=== PATIENT | male | born 1990 | race Caucasian/White ===

== ENCOUNTER 2021-01-24 20:17 | Inpatient (IN) | payer OTHER, MEDICARE, MEDICAID, SELFPAY ==
[2021-01-24] VITALS (7 sets, daily range): BP systolic 107–127; BP diastolic 72–82; PULSE 109–120; RESP 22; TEMP 37.2–37.3; O2SAT 89–94; BMI 4189.9
--- NOTE | 2021-01-24 20:47 | XRR_ITS ---
PROCEDURE INFORMATION: Exam: XR Chest Exam date and time: 01/24/2021 8:47 PM Age: 30 years old Clinical indication: Cough; Prior surgery; Surgery type: Open heart at 6 months old TECHNIQUE: Imaging protocol: XR of the chest. Views: 1 view. COMPARISON: No relevant prior studies available. FINDINGS: Lungs: Right hilar to lower lobe atelectasis versus infiltrate. Pleural spaces: Unremarkable. No pleural effusion. No pneumothorax. Heart/Mediastinum: Unremarkable. No cardiomegaly. Bones/joints: Sternotomy wires. 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 Apparent stomach seen under the left diaphragm. Free air under the diaphragm is felt unlikely given the localized nature of the colon and stomach, a CT could further evaluate for free air if clinical concern exists. XR/XR chest 1V portable 13330 IMPRESSION: 1. 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 2. Apparent stomach seen under the left diaphragm. Free air under the diaphragm is felt unlikely given the localized nature of the colon and stomach, a CT could further evaluate for free air if clinical concern exists. 3. Right hilar to lower lobe atelectasis versus infiltrate.
--- NOTE | 2021-01-24 20:47 | W.ED.GENADLT ---
HPI - General Adult General: Chief complaint: Fever Stated complaint: fever on and off since sunday Time Seen by Provider: 01/24/21 20:18 History of Present Illness: HPI narrative: This patient is a 30-year-old male with a history of Down syndrome presents to the emergency department complaint of cough and congestion. Mom and other family members had similar symptoms. Patient's pulse ox 93% on room air patient is calm at this time. Mom is concerned for possible Covid. Will do medical evaluation treat as needed Onset (ago): day(s) Pain Consistency: intermittent Associated symptoms: Deny chest pain, dyspnea, headache(s), nausea, rash, palpitations or vomiting Review of Systems General: Reports: 10 or more systems reviewed and unremarkable except in HPI and below Const: Denies: fever(s), chills, body aches or fatigue Eyes: Denies: change in vision or blurry vision ENMT: Denies: throat pain, hoarseness or mouth pain Card: Denies: chest pain, palpitations, irregular heart rhythm, edema, swelling of feet/ankles or lightheadedness Resp: Reports: non-productive cough; Denies: dyspnea, productive cough, wheezing or pain on inspiration GI: Denies: abdominal pain, nausea or vomiting : Denies: flank pain, dysuria, urinary frequency, urinary urgency or urinary hesitancy Musc: Denies: neck pain, back pain, extremity pain, extremity swelling, joint pain, joint swelling, joint redness, joint warmth or limited range of motion Skin/Breast: Denies: rash, pruritus, erythema or skin tenderness Neuro: Denies: headache(s), numbness in extremities or weakness in extremities Psych: Denies: anxiety or depression Physical Exam Const: COMMON NORMALS: no acute distress, average body habitus, patient oriented x3, no limitations, healthy appearing, alert and well nourished HENMT: COMMON NORMALS: normocephalic, atraumatic, hearing grossly normal bilaterally, external ears normal, EAC's normal, TM's normal bilaterally, Normal external nose present, Normal nasal mucous membranes and turbinates present, moist oral mucous membranes, oropharynx normal, dentition normal and gingiva normal HEAD & SCALP: normocephalic and atraumatic NOSE: Normal external nose present and Normal nasal mucous membranes and turbinates present EXTERNAL EAR: Yes external ears normal EXTERNAL AUDITORY CANAL: EAC's normal TYMPANIC MEMBRANE: TM's normal bilaterally Neck/C-Spine: COMMON NORMALS: full ROM, no lymphadenopathy, supple, no meningeal signs, no JVD, Thyroid normal and No carotid bruits THYROID: Thyroid normal Chest: COMMONS NORMALS: normal inspection of the chest, normal palpation of entire chest wall, normal inspection of the breasts and normal palpation of the breasts Breast/axilla inspection: Yes normal inspection of the breasts BREAST/AXILLA PALPATION: Yes normal palpation of the breasts Resp: COMMON NORMALS: normal respiratory effort, No retractions, No use of accessory muscles, clear to auscultation bilaterally and percussion normal AUSCULTATION: clear to auscultation bilaterally PERCUSSION: percussion normal Cardio: COMMON NORMALS: no JVD, regular rate, regular rhythm, S1 normal heart sound present, S2 normal heart sound present, No gallops present (Cardio), No clicks present (Cardio), No murmurs present (Cardio), No rub (Cardio) and Peripheral pulses 2+ throughout RATE: regular rate RHYTHM: regular rhythm HEART SOUNDS: S1 normal heart sound present and S2 normal heart sound present PERIPHERAL PULSES: Peripheral pulses 2+ throughout GI: COMMON NORMALS: Normal to inspection, nondistended, normoactive bowel sounds present, Soft to palpation, non-tender, No hepatosplenomegaly present, no masses and no bruits PALPATION: Yes Soft to palpation and Yes No hepatosplenomegaly present : COMMON NORMALS: Yes no CVA tenderness BLADDER/KIDNEY EXAM: Yes no CVA tenderness Back/Pelvis: COMMON NORMALS: no CVA tenderness, thoracic and lumbar spine normal to inspection, no thoracic nor lumbar tenderness, thoraco-lumbar ROM normal and straight leg raise negative bilaterally Extremity: COMMON NORMALS: normal to inspection, full ROM, capillary refill normal, no joint enlargement, no clubbing, cyanosis or edema, no calf tenderness and no pedal edema Neuro: COMMON NORMALS: patient oriented x3 SENSORIUM/ORIENTATION: Yes alert MENINGEAL SIGNS: Yes no meningeal signs Course Reevaluation(s): Reevaluation #1: I did discuss at length with mom at the bedside about patient being positive Covid. She understands that the patient will need to have an IV lab draw and further lab evaluations. Patient is satting 93% on nasal cannula at this time at 3 L. She is agreeable patient be admitted to the hospital for further evaluation and treatment. Time: 22:02 Consultations: Consultation #1: I did discuss at length with Dr. Kin cintron. She is accepted this patient for admission. She is reviewed pending lab order set. And will do side on plan of action at admission. She will see patient write additional orders Time: 22:02 Vital Signs: Vital signs: Vital Signs Temperature 99.1 F 01/24/21 20:39 Pulse Rate 120 H 01/24/21 22:11 Respiratory Rate 22 H 01/24/21 22:11 Blood Pressure 127/82 01/24/21 22:11 Pulse Oximetry 92 01/24/21 22:11 MDM - General Adult MDM Narrative: Medical decision making narrative: This patient is a 30-year-old male with a history of Down syndrome presents to the emergency department complaint of cough and congestion. Mom and other family members had similar symptoms. Patient's pulse ox 93% on room air patient is calm at this time. Mom is concerned for possible Covid. I did discuss at length with mom at the bedside about patient being positive Covid. She understands that the patient will need to have an IV lab draw and further lab evaluations. Patient is satting 93% on nasal cannula at this time at 3 L. She is agreeable patient be admitted to the hospital for further evaluation and treatment. I did discuss at length with Dr. Kin cintron. She is accepted this patient for admission. She is reviewed pending lab order set. And will do side on plan of action at admission. She will see patient write additional orders Medical Records: Attestation: I reviewed the patient's medical records. Lab Data: Attestation: I reviewed the patient's lab results. Labs: Lab Results 01/24/21 Range/Units 21:14 SARS-CoV-2 Ag (Rap id) Positive H (Negative) Imaging Data^: CXR: Attestation: I personally reviewed and interpreted this imaging study as follows: Radiologist's impression: IMPRESSION: 1. 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 2. Apparent stomach seen under the left diaphragm. Free air under the diaphragm is felt unlikely given the localized nature of the colon and stomach, a CT could further evaluate for free air if clinical concern exists. KUB: Attestation: I personally reviewed and interpreted this imaging study as follows: My impression: Normal evaluation for patient patient has a history of Hirschsprung's disease mom describes normal bowel movements and normal passage of gas per the patient. Radiologist's impression: IMPRESSION: Prominent colon and small bowel are seen beneath the diaphragm without gross air-fluid levels or dilation to suggest obstruction. Discharge Plan Discharge Patient Disposition: Admitted As Inpatient Admit Provider: Robyn Sanderson Clinical Impression: Pneumonia due to severe acute respiratory syndrome coronavirus 2 (SARS-CoV-2) Condition: Stable Coding Level of Care Code ED Supervisor Logging for Chg Fwd Exam Comprehensive
--- NOTE | 2021-01-24 21:40 | XRR_ITS ---
PROCEDURE INFORMATION: Exam: XR Abdomen Exam date and time: 01/24/2021 9:40 PM Age: 30 years old Clinical indication: Abdominal pain; Generalized; Additional info: Abd pain. Covid + TECHNIQUE: Imaging protocol: XR of the abdomen. Views: 2 Views. Upright and supine views. COMPARISON: CR (CHEST, ) 01/24/2021 9:24 PM FINDINGS: Gastrointestinal tract: Prominent colon and small bowel are seen beneath the diaphragm without gross air-fluid levels or dilation to suggest obstruction. Intraperitoneal space: Normal. No free air. Bones/joints: Unremarkable for age. XR/XR abdomen min 2V [id number] IMPRESSION: Prominent colon and small bowel are seen beneath the diaphragm without gross air-fluid levels or dilation to suggest obstruction.
[2021-01-24 21:47] LABS: SARS Covid-2 Antigen Positive (Negative)
[2021-01-24] MEDS: albuterol 8 gm MDI 2 PUFF INHALATION (21:55)
--- NOTE | 2021-01-24 22:46 | PC.NURSE ---
Pt resting, coloring into provided coloring book; mother at bedside. Pt calm and cooperative. IV placed with another RN assistance, but pt tolerated well.
[2021-01-24 22:48] LABS: Basophils % 0.2 %; Hematocrit 44.1 % (42.0-52.0); Hemoglobin 15.2 g/dL (11.7-16.6); Lymphocytes # 0.5 10^3/uL (0.8-4.8); Lymphocytes % 10.2 %; Mean Corpuscular HGB Conc 34.5 g/dL (30.0-36.0); Mean Corpuscular Hemoglobin 32.2 pg (28.0-34.0); Mean Corpuscular Volume 93.4 fL (80-94); Mean Platelet Volume 10.2 fL (7.4-10.4); Monocytes # 0.2 10^3/uL (0.2-0.9); Monocytes % 3.9 %; Neutrophils % 85.3 %; Nucleated Red Blood Cells % 0 %; Platelet Count 161 10^3/cmm (130-400); Red Blood Count 4.72 10^6/uL (4.1-5.3); Red Cell Distribution Width 12.2 % (12.1-15.1); White Blood Count 4.9 10^3/uL (4.0-10.0)
[2021-01-24] MEDS: dexamethasone 10 mg/mL INJ IVP (23:15)
[2021-01-24] MEDS: sodium chloride 0.9% 500 ML IV (23:15)
[2021-01-24 23:24] LABS: Lactic Sepsis W/Reflex 1.5 mmol/L (0.5-2.2)
[2021-01-24 23:25] LABS: Troponin T (5th) Once 6 ng/L (0-15)
[2021-01-24 23:28] LABS: INR 1.08 (0.8-1.2)
[2021-01-24 23:29] LABS: Partial Thromboplastin Time 34.5 SECONDS (23.9-36.7)
[2021-01-24 23:35] LABS: NT Pro B Type Natriuretic Pept 69 pg/mL (0-125); Procalcitonin 0.27 ng/mL (0-0.5)
--- NOTE | 2021-01-24 23:43 | P.HP_ITS ---
Providers/Chief Complaint Admitting Physician: Robyn Sanderson MD Primary Care Provider: Brice Nixon DO Chief Complaint: fever on and off since sunday History of Present Illness Dale Sanders is a 30 year old male who presented to the emergency room with chief complaint of fever for a couple of days, nonproductive cough and low oxygen levels that were noted today. Patient has a history of Down syndrome and most of history is obtained from his mother. He can answer a few questions but is anxious and a bit scared about being in the hospital and away from home. His mother had not felt well for a few days herself and then started feeling better. He has had fever off and on since Sunday or Sunday and had a cough. He had been playing and eating okay up until today however so she thought he would get better. He started having increased work of breathing and his mother checked his oxygen levels and noted that they were low in the upper 80s. He has a history of pneumonia several times in his life and has required hospitalization some years ago so when he gets cold-like symptoms she keeps a close eye on him. The low oxygen levels are what prompted the ED visit. On arrival here oxygen levels were in the upper 80s on room air. With 2 to 3 L of oxygen sats were maintaining in the low 90s. Rapid Covid antigen was positive. He had some right-sided infiltrate versus atelectasis noted on chest x-ray. He had some elevation in ferritin, D-dimer and CRP as noted below. He is being admitted for further treatment. He has not had Covid vaccination nor previously had Covid. His mother states that they were planning on getting vaccinated had just not gotten around to it yet. Review of Systems Const: Reports: fever(s) (Couple of days), change in appetite (Today only) and malaise (Started today) Eyes: Reports: other (Eyedrops for chronic tear duct blockage) ENMT: Reports: throat pain ( Almost ); Denies: nasal congestion Card: Denies: chest pain Resp: Reports: dyspnea, non-productive cough and other (Increased work of breathing with low oxygen at home); Denies: productive cough GI: Reports: vomiting (X1 today); Denies: abdominal pain or diarrhea : Denies: difficulty urinating Musc: Denies: back pain or extremity pain Skin/Breast: Denies: rash Neuro: Denies: headache(s) or difficulty walking Psych: Reports: anxiety (About being in the hospital) Adarsh/Lymph: Denies: easy bruising or easy bleeding Medications/Allergies Home Medications Medication Instructions Recorded Confirmed Last Taken Type tobramycin-dexamethasone 1 drp OPHTHALMIC (EYE) BEDTIME 01/25/21 01/25/21 01/23/21 History Allergies Allergy/AdvReac Type Severity Reaction Status Date / Time erythromycin base Allergy ALGY-Rash Verified 01/24/21 21:36 PFSH Acute PFSH: Medical History (Updated 01/25/21 @ 00:36 by Robyn Sanderson MD) 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 Surgical History (Updated 01/25/21 @ 00:36 by Robyn Sanderson MD) History of abdominal surgery multiple due to Hirschsprung's, prior colostomy s/p removal History of appendectomy History of eye surgery multiple History of hernia repair abdominal/incisional History of repair of congenital atrial septal defect (ASD) History of tonsillectomy S/P repair of PDA (patent ductus arteriosus) Family History (Updated 01/25/21 @ 00:37 by Robyn Sanderson MD) Father Cancer stomach cancer, age 51 Social History (Updated 01/25/21 @ 00:38 by Robyn Sanderson MD) Smoking and tobacco status: never smoked Alcohol intake: never Substance/Drug Use: never Household members: family Vitals/I&O/Wt Last Vital Signs Temp 99.0 F 01/24/21 23:20 Pulse 109 H 01/24/21 23:20 Resp 22 H 01/24/21 23:20 BP 108/78 01/24/21 23:20 Pulse Ox 93 01/24/21 23:20 Weight last 48 hrs Weight 67.585 kg Physical Exam Narrative: EXAM NARRATIVE: Constitutional: Awake and alert, pale, mild ill appearance HEENT: Classic Down's facies, some crusting at eyes bilaterally, conjunctive are not injected, nasopharynx with little bit of dried mucus, oropharynx clear with moist mucous membranes Neck: Supple Respiratory: No nasal flaring, no accessory muscle use, oxygen in place, crackles noted bilaterally, rhonchi noted on the right midlung Cardiovascular: Tachycardic, regular rhythm, no murmurs Abdomen: Soft, nondistended, no obvious tenderness though he does not like being touched : Deferred Extremities: No pitting edema, no calf tenderness Skin: Pale, no rashes noted on visible skin surfaces Neuro: Face symmetric, speech clear, moves all extremities though hesitant to follow commands initially Psych: Cooperative though scared/anxious Data : 01/24/21 22:30 01/24/21 22:30 Micro: Microbiology 01/24/21 22:45 Blood Culture - Preliminary Blood SPECIMEN COLLECTED 01/24/21 22:30 Blood Culture - Preliminary Blood SPECIMEN COLLECTED Other data: EKG: Ordered Laboratory Results WBC 4.9 10^3/uL (4.0-10.0) 01/24/21 22: RBC 4.72 10^6/uL (4.1-5.3) 01/24/21 22:30 Hgb 15.2 g/dL (11.7-16.6) 01/24/21 22:30 Hct 44.1 % (42.0-52.0) 01/24/21 22:30 MCV 93.4 fL (80-94) 01/24/21 22:30 MCH 32.2 pg (28.0-34.0) 01/24/21 22:30 MCHC 34.5 g/dL (30.0-36.0) 01/24/21 22:30 RDW 12.2 % (12.1-15.1) 01/24/21 22:30 Plt Count 161 10^3/cmm (130-400) 01/24/21 22:30 MPV 10.2 fL (7.4-10.4) 01/24/21 22:30 Neut % (Auto) 85.3 % 01/24/21 22:30 Lymph % (Auto) 10.2 % 01/24/21 22:30 [place] % (Auto) 3.9 % 01/24/21 22:30 Eos % (Auto) 0.0 % 01/24/21 22:30 Baso % (Auto) 0.2 % 01/24/21 22:30 Neut # (Auto) 4.20 10^3/uL (1.8-7.7) 01/24/21 22:30 Lymph # (Auto) 0.5 10^3/uL (0.8-4.8) L 01/24/21 22:30 [place] # (Auto) 0.2 10^3/uL (0.2-0.9) 01/24/21 22:30 Eos # (Auto) 0.0 10^3/uL (0.0-0.8) 01/24/21 22:30 Baso # (Auto) 0.0 10^3/uL (0.0-0.1) 01/24/21 22:30 Nucleated RBC % (auto) 0 % 01/24/21 22:30 Nucleated RBCs # 0.0 /100WBC 01/24/21 22:30 PT 14.30 SECONDS (12.1-14.9) 01/24/21 22:30 INR 1.08 (0.8-1.2) 01/24/21 22:30 APTT 34.5 SECONDS (23.9-36.7) 01/24/21 22:30 Fibrinogen 327 mg/dL (174-498) 01/24/21 22:30 D-Dimer 0.68 ug/mIFEU (0-0.59) H 01/24/21 22:30 Sodium 139 mmol/L (136-145) 01/24/21 22:30 Potassium 3.1 mmol/L (3.5-5.1) L 01/24/21 22:30 Chloride 103 mmol/L (98-107) 01/24/21 22:30 Carbon Dioxide 22 mmol/L (22-29) 01/24/21 22:30 Anion Gap 17.1 (5-19) 01/24/21 22:30 BUN 5 mg/dL (6-20) L 01/24/21 22:30 Creatinine 0.7 mg/dL (0.7-1.2) 01/24/21 22:30 GFR Calculation 132.4 mL/min (90-130) H 01/24/21 22:30 Glucose 109 mg/dL (65-115) 01/24/21 22:30 Calculated Osmolality 286 mOsm/kg (285-295) 01/24/21 22:30 Lactic Acid 1.5 mmol/L (0.5-2.2) 01/24/21 22:30 Calcium 7.8 mg/dL (8.5-10.5) L 01/24/21 22:30 Magnesium 1.7 mg/dL (1.7-2.3) 01/24/21 22:30 Ferritin 873 ng/mL (30-400) H 01/24/21 22:30 Total Bilirubin 0.3 mg/dL (0.15-1.2) 01/24/21 22:30 AST 20 U/L (0-40) 01/24/21 22:30 ALT 14 U/L (0-41) 01/24/21 22:30 Alkaline Phosphatase 81 IU/L (40-130) 01/24/21 22:30 Lactate Dehydrogenase 173 U/L (135-225) 01/24/21 22:30 Creatine Kinase 81 U/L (39-308) 01/24/21 22:30 Troponin T Gen 5 ng/L 6 ng/L (0-15) 01/24/21 22:30 C-Reactive Protein 30.8 mg/L (0.0-4.9) H 01/24/21 22:30 NT-Pro-B Natriuret Pep 69 pg/mL (0-125) 01/24/21 22:30 Total Protein 6.1 g/dL (6.6-8.7) L 01/24/21 22:30 Albumin 3.8 g/dL (3.5-5.2) 01/24/21 22:30 Globulin 2.3 g/dL (1.3-4.6) 01/24/21 22:30 Procalcitonin 0.27 ng/mL (0-0.5) 01/24/21 22:30 SARS-CoV-2 Ag (Rapid) Positive (Negative) H 01/24/21 21:14 Impressions Chest X-Ray 01/24/21 20:47 IMPRESSION: 1. 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 2. Apparent stomach seen under the left diaphragm. Free air under the diaphragm is felt unlikely given the localized nature of the colon and stomach, a CT could further evaluate for free air if clinical concern exists. 3. Right hilar to lower lobe atelectasis versus infiltrate. Abdomen X-Ray 01/24/21 21:40 IMPRESSION: Prominent colon and small bowel are seen beneath the diaphragm without gross air-fluid levels or dilation to suggest obstruction. A&P Assessment and plan (1) Infection due to severe acute respiratory syndrome coronavirus 2 (SARS-CoV-2): Currently with mildly elevated D-dimer and elevation in CRP, requiring oxygen 2 to 3 L to maintain saturations Status: Acute (2) Down syndrome: Status: Chronic Additional A&P Information Right diaphragm elevation in a patient with a history of Hirschsprung's and multiple abdominal surgeries Inpatient admission Covid isolation Will allow mother to stay in the room with Dale given his dependence on her for reassurance and safety, reviewed with her and she has not felt well prior to the onset of Dale symptoms but has been feeling better lately. Explained that she likely has had Covid but if she had not she was certainly at risk of jomar both at home and here in the hospital. She will wear a mask at all times and was given an opportunity to ask questions. We will provide albuterol and Advair, dexamethasone and initiate remdesivir Oxygen therapy, weaning as able Lovenox and SCDs Repeat d-dimer, ferritin and crp in am Blood cultures were collected Discussed with patient and his mother that we will have to do some serial labs to monitor his response to treatment and to see if he has any worsening laboratory values over time Vitamin supplementation Continue home eye drops Supportive care otherwise Discussed with Dale as well as his mother getting vaccinated after approximately 3 months. Mother indicated that they had talked about getting vaccinated last week but had just not gotten around to it yet aDle's mother has a pulse oximeter at home and would not be averse to consideration for oxygen at home where it to be needed at the time of discharge. Dale is quite anxious about being in the hospital and away from his usual routine but understands current need to continue care in the hospital setting since he is requiring oxygen and needs some additional treatment. Lines/tubes: Peripheral IV in right upper extremity, of note patient does not like to be stuck or have lab drawn and can get emotional DVT prophylaxis: SCDs and Lovenox Plans, findings and concerns discussed with Dale as well as his mother and both were given an opportunity to ask questions. Anticipated Disposition: Home Code Status: Full code Attestations Medical Necessity Statement*: Anticipated stay greater than two midnights in this patient presenting with Covid symptoms, positive rapid Covid antigen and hypoxemia as well as some initial laboratory markers suggestive of potential progressive disease including elevated ferritin, CRP and slight elevation in D-dimer. Plans are as indicated. Coding Level of Care Code Acute Tank Maker Wood for Chg Fwd Diagnoses Infection due to severe acute respiratory syndrome coronavirus 2 (SARS-CoV-2) U07.1 Down syndrome Q90.9
[2021-01-24 23:44] LABS: D Dimer 0.68 ug/mIFEU (0-0.59)
[2021-01-24 23:46] LABS: Alanine Aminotransferase 14 U/L (0-41); Albumin Level 3.8 g/dL (3.5-5.2); Alkaline Phosphatase 81 IU/L (40-130); Anion Gap 17.1 (5-19); Aspartate Amino Transferase 20 U/L (0-40); Blood Urea Nitrogen 5 mg/dL (6-20); C Reactive Protein 30.8 mg/L (0.0-4.9); Calcium 7.8 mg/dL (8.5-10.5); Carbon Dioxide 22 mmol/L (22-29); Chloride 103 mmol/L (98-107); Creatine Phosphokinase 81 U/L (39-308); Fibrinogen 327 mg/dL (174-498); Globulin 2.3 g/dL (1.3-4.6); Glomerular Filtration Rate 132.4 mL/min (90-130); Glucose 109 mg/dL (65-115); Lactate Dehydrogenase 173 U/L (135-225); Magnesium 1.7 mg/dL (1.7-2.3); Osmolality Calculated 286 mOsm/kg (285-295); Potassium 3.1 mmol/L (3.5-5.1); Sodium 139 mmol/L (136-145); Total Bilirubin 0.3 mg/dL (0.15-1.2); Total Protein 6.1 g/dL (6.6-8.7)
[2021-01-25] VITALS (23 sets, daily range): BP systolic 96–125; BP diastolic 71–87; PULSE 83–107; RESP 16–22; TEMP 36.4–37.9; O2SAT 91–95; BMI 29.7
[2021-01-25 00:39] LABS: Ferritin 873 ng/mL (30-400)
--- NOTE | 2021-01-25 01:18 | ECG_ITS ---
[facility] Test Date: 2021-01-25 Pat Name: Dale Sanders Department: Room: 101 Gender: Male Senior Computer Specialist: : 1990 Requested By: Robyn Sanderson Order Number: [id number] Reading MD: ALLISON GUAMAN Measurements Intervals Christine Rate: 95 P: 26 WA: 124 QRS: 10 QRSD: 90 T: -7 QT: 340 QTc: 428 Interpretive Statements SINUS RHYTHM POSSIBLE RIGHT VENTRICULAR CONDUCTION DELAY [RSR (QR) IN V1/V2] NONSPECIFIC T-WAVE ABNORMALITY No previous ECG available for comparison Electronically Signed On 01-25-2021 20:13:57 CDT by ALLISON GUAMAN [id number]
[2021-01-25] MEDS: remdesivir 200 MG in sodium chloride 0.9% (100 ml) 100 ML 100 MG IV (02:01)
[2021-01-25 03:53] LABS: Basophils % 0.3 %; Hematocrit 41.8 % (42.0-52.0); Hemoglobin 14.2 g/dL (11.7-16.6); Lymphocytes # 0.4 10^3/uL (0.8-4.8); Lymphocytes % 5.4 %; Mean Corpuscular Volume 94.1 fL (80-94); Mean Platelet Volume 10.7 fL (7.4-10.4); Monocytes # 0.2 10^3/uL (0.2-0.9); Monocytes % 2.6 %; Neutrophils # 6.27 10^3/uL (1.8-7.7); Neutrophils % 90.7 %; Nucleated Red Blood Cells % 0 %; Platelet Count 156 10^3/cmm (130-400); Red Blood Count 4.44 10^6/uL (4.1-5.3); Red Cell Distribution Width 12.3 % (12.1-15.1); White Blood Count 6.9 10^3/uL (4.0-10.0)
[2021-01-25 04:16] LABS: Blood Urea Nitrogen 6 mg/dL (6-20); Calcium 8.2 mg/dL (8.5-10.5); Carbon Dioxide 24 mmol/L (22-29); Chloride 104 mmol/L (98-107); Glomerular Filtration Rate 113.5 mL/min (90-130); Glucose 150 mg/dL (65-115); Osmolality Calculated 286 mOsm/kg (285-295); Sodium 138 mmol/L (136-145)
[2021-01-25 04:19] LABS: C Reactive Protein 55.9 mg/L (0.0-4.9); Ferritin 798 ng/mL (30-400)
[2021-01-25 04:22] LABS: Anion Gap 13.8 (5-19); Potassium 3.8 mmol/L (3.5-5.1)
[2021-01-25] MEDS: dexamethasone 4 mg/mL INJ 6 MG IVP (08:19)
[2021-01-25] MEDS: ascorbic acid 500 mg Tablet PO (08:20)
[2021-01-25] MEDS: pantoprazole DR 40 mg Tablet PO (08:20)
[2021-01-25] MEDS: cholecalciferol (vitamin D3) 1,000 unit Tablet 2000 UNIT PO (08:20)
[2021-01-25] MEDS: zinc gluconate 50 mg Tablet PO (08:20)
--- NOTE | 2021-01-25 09:34 | PC.CHAP ---
Pastoral Care Encounter/Spiritual Assessment Type of Contact [] Declined agricultural consultant visit [] Patient/Family/Request visit [] Outpatient visit [] Follow-up visit [] Physician referral [] Code/Alert [x] Routine visit [] Staff referral [] Actively dying [] Patient sleeping [] Family support [] [] Out of room [] Palliative care [] [x] Receiving care in room [] Pre-surgical visit [] Trauma [] Long length of stay [] ICU visit [x] Other: isolation Relational/Emotional Strength [] Patient feels connected with others/family/visitors/staff [] Distress [] Loneliness/isolation [] Abandonment Spirituality of Patient [] Person of [place] [] Attends Druze of their [place] [] Believes in Prayer [] Reads Bible or Congregation materials [] There are Spiritual issues to be addressed Furnace Keeper Interventions [x] Prayer [] Active listening [] Non-anxious presence [] Spiritual/emotional support [] Crisis/trauma care [] Spiritual counseling [] Bereavement support [] Provided bereavement packet [] Provided Bible/devotional materials [] Provided toy/stuffed animal, coloring book to patient or family member [] Provided Communion [] Anointing/[place] [] Salvation [x] Completed spiritual assessment [] Other: Impact on Illness or Injury [] Angry [] Fearful [] Anxious [] Often cries [] Exhaustion [] Unable to work [] Unable to attend scientology [] Unable to walk/stand [] Unable to read [] Unable to drive [] Unable to eat/drink [] Unable to sleep [] Unable to be with family [] Patient intubated [] Other: Summary Time spent with patient
--- NOTE | 2021-01-25 13:23 | P.PN_ITS ---
Subjective Subjective: Interval history: Patient was seen this morning, his mother is at bedside, he is a bit reluctant to answer questions, is withdrawn, he does tell me he is doing okay, does follow commands, does not look short of breath, afebrile overnight, currently on 2 L nasal cannula, Vitals/I&O/Wt Last Vital Signs Temp 97.6 F 01/25/21 11:01 Pulse 88 01/25/21 11:01 Resp 18 01/25/21 11:01 BP 96/79 01/25/21 11:01 Pulse Ox 92 01/25/21 11:01 01/24/21 01/25/21 01/25/21 22:59 06:59 14:59 Intake Total 1600 / 1600 480 / 480 Balance 1600 / 1600 480 / 480 Weight last 48 hrs Weight 69.037 kg Weight 67.585 kg Physical Exam Const: COMMON NORMALS: no acute distress ORIENTATION/CONSCIOUSNESS: Yes awake and Yes oriented to person Resp: COMMON NORMALS: normal respiratory effort, No retractions, No use of accessory muscles and clear to auscultation bilaterally AUSCULTATION: clear to auscultation bilaterally Cardio: COMMON NORMALS: regular rate, regular rhythm, S1 normal heart sound present and S2 normal heart sound present RATE: regular rate RHYTHM: regular rhythm HEART SOUNDS: S1 normal heart sound present and S2 normal heart sound present GI: COMMON NORMALS: Normal to inspection, nondistended, normoactive bowel sounds present, Soft to palpation and non-tender PALPATION: Yes Soft to palpation Extremity: COMMON NORMALS: no pedal edema Neuro: SENSORIUM/ORIENTATION: Yes oriented to person Data : 01/25/21 03:40 01/25/21 03:40 Micro: Microbiology 01/24/21 22:45 Blood Culture - Preliminary Blood SPECIMEN COLLECTED 01/24/21 22:30 Blood Culture - Preliminary Blood SPECIMEN COLLECTED A&P Assessment and plan (1) Infection due to severe acute respiratory syndrome coronavirus 2 (SARS-CoV-2): Currently with mildly elevated D-dimer and elevation in CRP, requiring oxygen 2 to 3 L to maintain saturations Status: Acute (2) Down syndrome: Status: Chronic (3) Acute respiratory failure with hypoxia: Status: Acute Additional A&P Information Right diaphragm elevation in a patient with a history of Hirschsprung's and multiple abdominal surgeries Inpatient admission Covid isolation Will allow mother to stay in the room with Dale given his dependence on her for reassurance and safety, reviewed with her and she has not felt well prior to the onset of Dale symptoms but has been feeling better lately. Explained that she likely has had Covid but if she had not she was certainly at risk of jomar both at home and here in the hospital. She will wear a mask at all times and was given an opportunity to ask questions. We will provide albuterol and Advair, dexamethasone and initiate remdesivir Chest x-ray does show pulmonary infiltrates, there is a risk for secondary bacterial infections, will start him on Rocephin and azithromycin Oxygen therapy, weaning as able Lovenox, patient does not tolerate injections, has refused Lovenox, mother alexis ised of the risks of hypercoagulability and DVTs and PEs associate with COVID- 19, she voiced understanding, all questions answered, declined Lovenox. I think trying Eliquis or a newer oral anticoagulant will carry too many risks of bleeding, and mother agrees. I have discussed aspirin 81 mg, he can chew the tablet, because he does not swallow tablets, I advised mom that there is no good studies showing the benefit of aspirin for hypercoagulability prophylaxis in COVID-19 patients, but it can provide some benefit, his benefits unfortunately unknown at this point. After discussion the risks and benefits of aspirin 81 mg to prevent hypercoagulability prophylaxis to COVID-19 patients, she voiced understanding, all questions answered, agreed to proceed Can try SCDs Unfortunately he cannot perform a CT angiogram, due to the whole process of going through the CT scanner, but if is urgently required can try, will hold off for now, or if there is high suspicion for DVT or PE we can always place him on anticoagulation in the meantime Repeat d-dimer, ferritin and crp in am Blood cultures were collected Discussed with patient and his mother that we will have to do some serial labs to monitor his response to treatment and to see if he has any worsening laboratory values over time Vitamin supplementation Continue home eye drops Supportive care otherwise Discussed with Dale as well as his mother getting vaccinated after approximately 3 months. Mother indicated that they had talked about getting vaccinated last week but had just not gotten around to it yet Dale's mother has a pulse oximeter at home and would not be averse to consideration for oxygen at home where it to be needed at the time of discharge. Dale is quite anxious about being in the hospital and away from his usual routine but understands current need to continue care in the hospital setting since he is requiring oxygen and needs some additional treatment. Lines/tubes: Peripheral IV in right upper extremity, of note patient does not like to be stuck or have lab drawn and can get emotional DVT prophylaxis: SCDs and aspirin Anticipated Disposition: Home Code Status: Full code Plan for today, discontinue Lovenox, start aspirin 81 mg, SCDs, continue remdesivir, continue Advair Attestations Medical Necessity Statement*: Patient requires hospitalization, inpatient, greater than 2 midnights, for acute respiratory failure with proximal ascending to COVID-19 Coding Level of Care Code Acute Health Care Consultant for Renetta Cruz Diagnoses Infection due to severe acute respiratory syndrome coronavirus 2 (SARS-CoV-2) U07.1 Down syndrome Q90.9 Acute respiratory failure with hypoxia J96.01
[2021-01-25] MEDS: azithromycin 500 MG in sodium chloride 0.9% 250 ML 250 MG IV (13:36)
[2021-01-25] MEDS: cefTRIAXone 1,000 MG in sodium chloride 0.9% (plus) 50 ML 100 MG IV (16:48)
[2021-01-25] MEDS: albuterol 8 gm MDI 2 PUFF INHALATION (20:19)
[2021-01-25] MEDS: tobramycin-dexametha Op Susp 5 mL Btl 1 DROP EYE-BOTH (22:20)
[2021-01-25] MEDS: acetaminophen 650 mg/20.3 mL UDC PO (23:22)
[2021-01-26] VITALS (20 sets, daily range): BP systolic 91–115; BP diastolic 61–75; PULSE 65–97; RESP 17–24; TEMP 36.3–37.1; O2SAT 89–95
[2021-01-26] MEDS: remdesivir 100 MG in sodium chloride 0.9% (100 ml) 100 ML IV (06:07)
[2021-01-26] MEDS: albuterol 8 gm MDI 2 PUFF INHALATION ×2 (08:38→21:09)
[2021-01-26] MEDS: aspirin 81 mg Chew Tablet PO (08:44)
[2021-01-26] MEDS: dexamethasone 4 mg/mL INJ 6 MG IVP (08:44)
--- NOTE | 2021-01-26 10:10 | PC.CHAP ---
Pastoral Care Encounter/Spiritual Assessment Type of Contact [] Declined veterans rehabilitation counselor visit [] Patient/Family/Request visit [] Outpatient visit [] Follow-up visit [] Physician referral [] Code/Alert [x] Routine visit [] Staff referral [] Actively dying [] Patient sleeping [] Family support [] [] Out of room [] Palliative care [] [] Receiving care in room [] Pre-surgical visit [] Trauma [] Long length of stay [] ICU visit [x] Other: isolated Relational/Emotional Strength [] Patient feels connected with others/family/visitors/staff [] Distress [] Loneliness/isolation [] Abandonment Spirituality of Patient [] Person of [place] [] Attends Spiritism of their [place] [] Believes in Prayer [] Reads Bible or Druze materials [] There are Spiritual issues to be addressed Shallot Cleaner Interventions [x] Prayer [] Active listening [] Non-anxious presence [] Spiritual/emotional support [] Crisis/trauma care [] Spiritual counseling [] Bereavement support [] Provided bereavement packet [] Provided Bible/devotional materials [] Provided toy/stuffed animal, coloring book to patient or family member [] Provided Communion [] Anointing/[place] [] Salvation [x] Completed spiritual assessment [] Other: Impact on Illness or Injury [] Angry [] Fearful [] Anxious [] Often cries [] Exhaustion [] Unable to work [] Unable to attend taoist [] Unable to walk/stand [] Unable to read [] Unable to drive [] Unable to eat/drink [] Unable to sleep [] Unable to be with family [] Patient intubated [] Other: Summary Time spent with patient
[2021-01-26 10:54] LABS: Basophils % 0.2 %; Hematocrit 44.7 % (42.0-52.0); Hemoglobin 15.3 g/dL (11.7-16.6); Lymphocytes # 0.6 10^3/uL (0.8-4.8); Lymphocytes % 5.1 %; Mean Corpuscular HGB Conc 34.2 g/dL (30.0-36.0); Mean Corpuscular Hemoglobin 32.2 pg (28.0-34.0); Mean Corpuscular Volume 94.1 fL (80-94); Mean Platelet Volume 10.9 fL (7.4-10.4); Monocytes # 0.2 10^3/uL (0.2-0.9); Monocytes % 1.9 %; Neutrophils # 11.39 10^3/uL (1.8-7.7); Neutrophils % 92.1 %; Nucleated Red Blood Cells % 0 %; Platelet Count 163 10^3/cmm (130-400); Red Blood Count 4.75 10^6/uL (4.1-5.3); Red Cell Distribution Width 12.6 % (12.1-15.1); White Blood Count 12.4 10^3/uL (4.0-10.0)
[2021-01-26 11:11] LABS: Alanine Aminotransferase 17 U/L (0-41); Albumin Level 3.6 g/dL (3.5-5.2); Alkaline Phosphatase 78 IU/L (40-130); Blood Urea Nitrogen 13 mg/dL (6-20); Calcium 8.6 mg/dL (8.5-10.5); Carbon Dioxide 24 mmol/L (22-29); Chloride 105 mmol/L (98-107); Globulin 2.6 g/dL (1.3-4.6); Glomerular Filtration Rate 132.4 mL/min (90-130); Glucose 129 mg/dL (65-115); Osmolality Calculated 296 mOsm/kg (285-295); Phosphorus 1.7 mg/dL (2.5-4.5); Sodium 142 mmol/L (136-145); Total Bilirubin 0.3 mg/dL (0.15-1.2); Total Protein 6.2 g/dL (6.6-8.7)
[2021-01-26 11:15] LABS: Anion Gap 17.4 (5-19); Potassium 4.4 mmol/L (3.5-5.1)
[2021-01-26 11:16] LABS: Aspartate Amino Transferase 28 U/L (0-40)
[2021-01-26 11:31] LABS: Slide Review Slide Review Perform
[2021-01-26] MEDS: azithromycin 500 MG in sodium chloride 0.9% 250 ML 250 MG IV (13:31)
[2021-01-26] MEDS: cefTRIAXone 1,000 MG in sodium chloride 0.9% (plus) 50 ML 100 MG IV (16:42)
--- NOTE | 2021-01-26 17:04 | P.PN_ITS ---
Subjective Subjective: Interval history: 30 year old male with a past medical history of hirschprung disease and downs syndrome who presented to the emergency room with chief complaint of fever for a couple of days, nonproductive cough and low oxygen levels that were noted today. Laboratory work up on arrival showed a WBC of 4.9, hgb of 15.2, hct of 44.1, and a plt count of 161. INR of 1.08, d-dimer of 0.68. NA of 129, potassium of 3.1, chloride of 103, bicarb of 22, Bun of 5 and a creatinine of 0.7. LA of 1.5. Ferritin of 873, CRP of 30.8, procalcitonin of 0.27. COVID -19 ag was positive. Patient was started on rocephin 1g IV q24hr, azithromycin 500mg IV x q24hr, and decadron 6mg IV q24hr. Patients respiratory status remained stable. On 01/25 patient was started on Remdesivir 100mg IV daily x 4 days. Respiratory status remained stable on 2L of o2 via NC. Medications: Reviewed: Yes Vitals/I&O/Wt Last Vital Signs Temp 97.4 F L 01/26/21 12:00 Pulse 84 01/26/21 15:55 Resp 17 01/26/21 15:55 BP 108/73 01/26/21 12:00 Pulse Ox 92 01/26/21 15:55 01/26/21 01/26/21 01/26/21 06:59 14:59 22:59 Intake Total 1966 590 / 590 Output Total 2 / 3 Balance 225 / 1963 590 / 590 Weight last 48 hrs Weight 69.099 kg Weight 69.037 kg Weight 67.585 kg Physical Exam Const: COMMON NORMALS: no acute distress ORIENTATION/CONSCIOUSNESS: Yes awake and Yes oriented to person Resp: COMMON NORMALS: normal respiratory effort, No retractions, No use of accessory muscles and clear to auscultation bilaterally AUSCULTATION: clear to auscultation bilaterally Cardio: COMMON NORMALS: regular rate, regular rhythm, S1 normal heart sound present and S2 normal heart sound present RATE: regular rate RHYTHM: regular rhythm HEART SOUNDS: S1 normal heart sound present and S2 normal heart sound present GI: COMMON NORMALS: Normal to inspection, nondistended, normoactive bowel sounds present, Soft to palpation and non-tender PALPATION: Yes Soft to palpation Extremity: COMMON NORMALS: no pedal edema Neuro: SENSORIUM/ORIENTATION: Yes oriented to person Data : 01/26/21 10:41 01/26/21 10:41 Micro: Microbiology 01/24/21 22:45 Blood Culture - Preliminary Blood NEGATIVE TO DATE 01/24/21 22:30 Blood Culture - Preliminary Blood NEGATIVE TO DATE A&P Assessment and plan (1) Infection due to severe acute respiratory syndrome coronavirus 2 (SARS-CoV-2): Improving On remdesivir Decadron [place] abx Status: Acute (2) Down syndrome: Status: Chronic (3) Acute respiratory failure with hypoxia: Status: Acute Additional A&P Information Plan to d.c once completed remdesivir Attestations Medical Necessity Statement*: Will continue hospitalization for management of covid19 pneuonia Time Spent in Patient Care: Greater than 35 minutes Coding Level of Care Code Acute Rn Case Management for [facility] Diagnoses Infection due to severe acute respiratory syndrome coronavirus 2 (SARS-CoV-2) U07.1 Down syndrome Q90.9 Acute respiratory failure with hypoxia J96.01
[2021-01-26] MEDS: tobramycin-dexametha Op Susp 5 mL Btl 1 DROP EYE-BOTH (22:48)
[2021-01-27] VITALS (10 sets, daily range): BP systolic 98–128; BP diastolic 54–77; PULSE 73–87; RESP 16–22; TEMP 36.4–36.8; O2SAT 92–95
[2021-01-27] MEDS: remdesivir 100 MG in sodium chloride 0.9% (100 ml) 100 ML IV (06:55)
[2021-01-27] MEDS: dexamethasone 4 mg/mL INJ 6 MG IVP (10:08)
--- NOTE | 2021-01-27 14:10 | P.PN_ITS ---
Subjective Subjective: Interval history: 30 year old male with a past medical history of hirschprung disease and downs syndrome who presented to the emergency room with chief complaint of fever for a couple of days, nonproductive cough and low oxygen levels that were noted today. Laboratory work up on arrival showed a WBC of 4.9, hgb of 15.2, hct of 44.1, and a plt count of 161. INR of 1.08, d-dimer of 0.68. NA of 129, potassium of 3.1, chloride of 103, bicarb of 22, Bun of 5 and a creatinine of 0.7. LA of 1.5. Ferritin of 873, CRP of 30.8, procalcitonin of 0.27. COVID -19 ag was positive. Patient was started on rocephin 1g IV q24hr, azithromycin 500mg IV x q24hr, and decadron 6mg IV q24hr. Patients respiratory status remained stable. On 01/25 patient was started on Remdesivir 100mg IV daily x 4 days. Respiratory status remained stable on 2L of o2 via NC. 01/27 No new clinical events overnight. no fever, chills, nausea or vomiting. Medications: Reviewed: Yes Vitals/I&O/Wt Last Vital Signs Temp 98.2 F 01/27/21 12:00 Pulse 79 01/27/21 13:54 Resp 18 01/27/21 13:54 BP 128/76 01/27/21 12:00 Pulse Ox 92 01/27/21 13:54 01/26/21 01/27/21 01/27/21 22:59 06:59 14:59 Intake Total 410 / 1000 100 / 1100 940 / 940 Output Total 2 / 2 Balance 408 / 998 100 / 1098 940 / 940 Weight last 48 hrs Weight 69.037 kg Weight 69.099 kg Physical Exam Const: COMMON NORMALS: no acute distress ORIENTATION/CONSCIOUSNESS: Yes awake and Yes oriented to person Resp: COMMON NORMALS: normal respiratory effort, No retractions, No use of accessory muscles and clear to auscultation bilaterally AUSCULTATION: clear to auscultation bilaterally Cardio: COMMON NORMALS: regular rate, regular rhythm, S1 normal heart sound present and S2 normal heart sound present RATE: regular rate RHYTHM: regular rhythm HEART SOUNDS: S1 normal heart sound present and S2 normal heart sound present GI: COMMON NORMALS: Normal to inspection, nondistended, normoactive bowel sounds present, Soft to palpation and non-tender PALPATION: Yes Soft to palpation Extremity: COMMON NORMALS: no pedal edema Neuro: SENSORIUM/ORIENTATION: Yes oriented to person Data : 01/26/21 10:41 01/26/21 10:41 A&P Assessment and plan (1) Infection due to severe acute respiratory syndrome coronavirus 2 (SARS-CoV-2): Improving On remdesivir Decadron 6 mg po daily Empirically on Rocephin/azithromycin Status: Acute (2) Down syndrome: Status: Chronic (3) Acute respiratory failure with hypoxia: Wean o2 as tolerated Home 02 eval at time of discharge Status: Acute Additional A&P Information Plan to d.c once completed remdesivir Attestations Medical Necessity Statement*: Will require additional hospitalization for management of COVID19 related pneumonia Time Spent in Patient Care: Greater than 35 minutes (>than 50% of time spent in counselling and/or direct pt care on unit) . Coding Level of Care Code Acute Coin Machine Collector for [facility] Fwd Exam Detailed Diagnoses Infection due to severe acute respiratory syndrome coronavirus 2 (SARS-CoV-2) U07.1 Down syndrome Q90.9 Acute respiratory failure with hypoxia J96.01
[2021-01-27] MEDS: azithromycin 500 MG in sodium chloride 0.9% 250 ML 250 MG IV (15:00)
[2021-01-27] MEDS: cefTRIAXone 1,000 MG in sodium chloride 0.9% (plus) 50 ML 100 MG IV (17:48)
[2021-01-27] MEDS: albuterol 8 gm MDI 2 PUFF INHALATION (20:37)
[2021-01-27] MEDS: tobramycin-dexametha Op Susp 5 mL Btl 1 DROP EYE-BOTH (21:36)
--- NOTE | 2021-01-27 22:37 | PC.NURSE ---
Bedside report received from Jacbo BOND. Patient is A & O with Mother at bedside. Patient/family does not express any needs/concerns at this time.
[2021-01-28] VITALS (11 sets, daily range): BP systolic 111–120; BP diastolic 67–77; PULSE 53–88; RESP 16–20; TEMP 36.2–36.6; O2SAT 90–96
--- NOTE | 2021-01-28 00:14 | PC.NURSE ---
Patient's O2 sat was dropping to 84%. Nasal Cannula was noted to be out of patient's nose. Once it was placed back in. O2 sat is now 92%.
[2021-01-28] MEDS: remdesivir 100 MG in sodium chloride 0.9% (100 ml) 100 ML IV (05:21)
--- NOTE | 2021-01-28 07:08 | PC.NURSE ---
Mother refused to have morning lab draw done.
[2021-01-28] MEDS: albuterol 8 gm MDI 2 PUFF INHALATION (08:53)
[2021-01-28] MEDS: dexamethasone 4 mg/mL INJ 6 MG IVP (09:10)
--- NOTE | 2021-01-28 09:59 | PC.SOCIAL ---
IMM Pg 2 Called pt's mother/legal guardian to discuss medicare rights. Verbalized understanding. Placed copy in chart and gave copy to nurse to place in pt's room (isolation precautions). Initialed, timed, dated.
--- NOTE | 2021-01-28 10:00 | PC.NURSE ---
Meds Per mother at bedside pt cannot swallow oral pills. Dr. Livingston is in room and notified him that pt cannot swallow pills. ordered to check on pharmacy if we have liquid forms on ascorbic acid, aspirin and zinc gluconate. called pharmacy and they don't have any available liquid or chewable on those meds. Noted that Dr. Livingston had discontinued the pills.
--- NOTE | 2021-01-28 13:44 | P.PN_ITS ---
Subjective Subjective: Interval history: 30 year old male with a past medical history of hirschprung disease and downs syndrome who presented to the emergency room with chief complaint of fever for a couple of days, nonproductive cough and low oxygen levels that were noted today. Laboratory work up on arrival showed a WBC of 4.9, hgb of 15.2, hct of 44.1, and a plt count of 161. INR of 1.08, d-dimer of 0.68. NA of 129, potassium of 3.1, chloride of 103, bicarb of 22, Bun of 5 and a creatinine of 0.7. LA of 1.5. Ferritin of 873, CRP of 30.8, procalcitonin of 0.27. COVID -19 ag was positive. Patient was started on rocephin 1g IV q24hr, azithromycin 500mg IV x q24hr, and decadron 6mg IV q24hr. Patients respiratory status remained stable. On 01/25 patient was started on Remdesivir 100mg IV daily x 4 days. Respiratory status remained stable on 2L of o2 via NC. 01/27 No new clinical events overnight. no fever, chills, nausea or vomiting. 01/28 Continues to improve. Medications: Reviewed: Yes Vitals/I&O/Wt Last Vital Signs Temp 97.8 F 01/28/21 04:00 Pulse 79 01/28/21 12:00 Resp 18 01/28/21 12:00 BP 120/70 01/28/21 12:00 Pulse Ox 90 01/28/21 12:00 01/27/21 01/28/21 01/28/21 22:59 06:59 14:59 Intake Total 540 / 1480 100 / 1580 222 / 222 Balance 540 / 1480 100 / 1580 222 / 222 Weight last 48 hrs Weight 70.67 kg Weight 69.037 kg Physical Exam Const: COMMON NORMALS: no acute distress ORIENTATION/CONSCIOUSNESS: Yes a wake and Yes oriented to person Resp: COMMON NORMALS: normal respiratory effort, No retractions, No use of accessory muscles and clear to auscultation bilaterally AUSCULTATION: clear to auscultation bilaterally Cardio: COMMON NORMALS: regular rate, regular rhythm, S1 normal heart sound present and S2 normal heart sound present RATE: regular rate RHYTHM: regular rhythm HEART SOUNDS: S1 normal heart sound present and S2 normal heart sound present GI: COMMON NORMALS: Normal to inspection, nondistended, normoactive bowel sounds present, Soft to palpation and non-tender PALPATION: Yes Soft to palpation Extremity: COMMON NORMALS: no pedal edema Neuro: SENSORIUM/ORIENTATION: Yes oriented to person Data : 01/26/21 10:41 01/26/21 10:41 A&P Assessment and plan (1) Infection due to severe acute respiratory syndrome coronavirus 2 (SARS-CoV-2): Improving On remdesivir Decadron 6 mg po daily D/C - Rocephin/azithromycin Status: Acute (2) Down syndrome: Status: Chronic (3) Acute respiratory failure with hypoxia: Wean o2 as tolerated Home 02 eval at time of discharge Status: Acute Additional A&P Information Additional day in hospital to complete remdesivir. Anticipate d/c tomorrow. Attestations Medical Necessity Statement*: Will continue hospitalization for management of COVID-19 pneumonia Time Spent in Patient Care: Greater than 35 minutes (>than 50% of time spent in counselling and/or direct pt care on unit) . Coding Level of Care Code Acute Licensed Clinician for Renetta Fwkelsi Diagnoses Infection due to severe acute respiratory syndrome coronavirus 2 (SARS-CoV-2) U07.1 Down syndrome Q90.9 Acute respiratory failure with hypoxia J96.01
[2021-01-28] MEDS: tobramycin-dexametha Op Susp 5 mL Btl 1 DROP EYE-BOTH (21:49)
[2021-01-29] VITALS (12 sets, daily range): BP systolic 100–113; BP diastolic 59–96; PULSE 58–70; RESP 17–20; TEMP 36.6–36.8; O2SAT 88–94
[2021-01-29] MEDS: remdesivir 100 MG in sodium chloride 0.9% (100 ml) 100 ML IV (05:21)
[2021-01-29] MEDS: dexamethasone 4 mg/mL INJ 6 MG IVP (07:55)
[2021-01-29] MEDS: albuterol 8 gm MDI 2 PUFF INHALATION (08:19)
--- NOTE | 2021-01-29 13:42 | P.DS_ITS ---
Discharge Providers Date of Admission: 01/25/21 01:18 Date of Discharge: January 29, 2021 Attending Provider at Admission: Robyn Sanderson MD Attending Provider at Discharge: David Livingston Primary Care Provider: Brice Nixon DO Diagnoses at Discharge Discharge Diagnosis (1) Infection due to severe acute respiratory syndrome coronavirus 2 (SARS-CoV-2): Status: Acute (2) Down syndrome: Status: Chronic (3) Acute respiratory failure with hypoxia: Status: Acute Reason for Visit Reason for Visit: fever on and off since sunday Hospital Course Hospital Course 30 year old male with a past medical history of hirschprung disease and downs syndrome who presented to the emergency room with chief complaint of fever for a couple of days, nonproductive cough and low oxygen levels that were noted today. Laboratory work up on arrival showed a WBC of 4.9, hgb of 15.2, hct of 44.1, and a plt count of 161. INR of 1.08, d-dimer of 0.68. NA of 129, potassium of 3.1, chloride of 103, bicarb of 22, Bun of 5 and a creatinine of 0.7. LA of 1.5. Ferritin of 873, CRP of 30.8, procalcitonin of 0.27. COVID -19 ag was positive. Patient was started on rocephin 1g IV q24hr, azithromycin 500mg IV x q24hr, and decadron 6mg IV q24hr. Patients respiratory status remained stable. On 01/25 patient was started on Remdesivir 100mg IV daily x 4 days. Respiratory status remained stable on 2L of o2 via NC. Patient was dicharged on 01/29 After completion of remdesivir. Home oxygen eval and arrangement prior to discharge. Physical Exam Const: COMMON NORMALS: no acute distress ORIENTATION/CONSCIOUSNESS: Yes awake and Yes oriented to person Resp: COMMON NORMALS: normal respiratory effort, No retractions, No use of accessory muscles and clear to auscultation bilaterally AUSCULTATION: clear to auscultation bilaterally Cardio: COMMON NORMALS: regular rate, regular rhythm, S1 normal heart sound present and S2 normal heart sound present RATE: regular rate RHYTHM: regular rhythm HEART SOUNDS: S1 normal heart sound present and S2 normal heart sound present GI: COMMON NORMALS: Normal to inspection, nondistended, normoactive bowel sounds present, Soft to palpation and non-tender PALPATION: Yes Soft to palpation Extremity: COMMON NORMALS: no pedal edema Neuro: SENSORIUM/ORIENTATION: Yes oriented to person Discharge Data Data Completed and Pending: Completed Studies During Hospitalization Category Date Time Status XR abdomen min 2V [id number] Stat Exams 01/24/21 21:40 Completed XR chest 1V chacorta ble [id number] Stat Exams 01/24/21 20:47 Completed Pending at discharge Category Date Time Status Blood Culture Sta t Lab 01/24/21 22:45 Results Sputum Culture an d Gram Stain Stat Lab 01/25/21 08:55 Uncollected Vitals: Last Vital Signs Temp 98.2 F 01/29/21 12:06 Pulse 68 01/29/21 12:06 Resp 17 01/29/21 12:06 BP 100/60 01/29/21 12:06 Pulse Ox 88 L 01/29/21 12:27 Discharge Plan Discharge Patient Disposition: Home Condition: Stable Prescriptions: New Decadron 6 mg tablet 6 mg PO Q24H Qty: 5 RF: 0 Continued tobramycin-dexamethasone 0.3-0.1 % drops,suspension 1 drp ophthalmic (eye) BEDTIME RF: 0 Discharge Orders: Discharge Order (Routine); Ordered 01/29/21 Ordered By: David Livingston Other Ambulatory Orders: DME: Oxygen (Order) Location: None Selected Ordered By: David Livingston Referrals: Kezia Abraham MD [Physician] - 1 week Brice Nixon DO [Primary Care Provider] - 1 week ([facility] should be calling you to set a follow up appointment if you have not heard from them by sunday please call and schedule an appointment.) Discharge Diet: Advance as tolerated Discharge Activity: Increase activity as tolerated Patient Instructions: Dexamethasone (By mouth), Opioid Safety Discharge Attestations Time Spent in Discharge Care*: greater than 30 min Specific Discharge Activities: educating patient, educating and/or supporting family/caregiver, discussing with case management manager/social workers/dc planners, documenting/other paperwork and evaluating patient/reviewing data Status at Discharge: Cognitive status at discharge: other (at baseline ) , Behavioral status at discharge: cooperative , Functional status at discharge: independent ambulation Overall status at discharge: patient is progressing back to baseline Quality Metrics Clinical Quality Measures During this hospital stay, did patient experience: None Coding Level of Care Code Acute Chg FW DC note Exam Detailed Diagnoses Infection due to severe acute respiratory syndrome coronavirus 2 (SARS-CoV-2) U07.1 Down syndrome Q90.9 Acute respiratory failure with hypoxia J96.01
== END 2021-01-29 16:00 | disposition home or self-care (01) | DRG 177 ==
LOC: ER 22:03 → CSU 23:17
PROVIDERS: Family Medicine; Admitting Provider Hospitalist; Emergency Provider Emergency Medicine; PCP Internal Medicine; Visit Provider Hospitalist
DX: U07.1 COVID-19 (principal); J96.01 Acute respiratory failure with hypoxia; Q43.1 Hirschsprung's disease; Q90.9 Down syndrome, unspecified; Z87.01 Personal history of pneumonia (recurrent)
CPT/HCPCS: 36415; 71045; 74019; 80048; 80053; 82550; 82728; 83605; 83615; 83735; 83880; 84100; 84145; 84484; 85025; 85378; 85384; 85610; 85730; 86140; 87040; 87426; 93005; 94640; 94664; J0456; J0696; J1100; J3535; J7040; J7050